=== PATIENT | male | born 1975 | race American Indian/Alaskan Native ===

== ENCOUNTER 2018-09-13 18:26 | Emergency (ER) | payer SELFPAY ==
--- NOTE | 2018-09-13 18:38 | Emergency Department Report ---
Chief Complaint: Abdominal Pain Stated Complaint: LOWER BACK/SIDE PAIN Time Seen by Provider: 09/13/18 18:33 - HPI History of Present Illness: This is a 43 y.o. male that presents to the ER with left flank pain for 30 mins- 1 hour. Reports pain as sharp constant pain. No PMH - Exam Vital Signs: Vital Signs 09/13/18 18:30 Temperature 97.4 F L Pulse Rate 80 Respiratory 22 Rate Blood Pressure 151/89 [Right] O2 Sat by Pulse 99 Oximetry MSE screening note: Focused history and physical exam performed. Due to findings the following was ordered: Labs and CT of abdomen and pelvis ED Disposition for MSE Condition: Stable
[2018-09-13 18:42] VITALS: BP 151/98
[2018-09-13 19:13] LABS: Basophils # (Auto) 0.1 K/mm3 (0.0-0.1); Basophils % (Auto) 1.1 % (0.0-1.8); Eosinophils # (Auto) 0.5 K/mm3 (0.0-0.4); Eosinophils % (Auto) 5.9 % (0.0-4.3); Hematocrit 39.8 % (35.5-45.6); Hemoglobin 13.4 gm/dl (11.8-15.2); Lymphocytes # (Auto) 2.5 K/mm3 (1.2-5.4); Lymphocytes % (Auto) 30.6 % (13.4-35.0); Mean Corpuscular HGB Conc 34 % (32-34); Mean Corpuscular Volume 90 fl (84-94); Monocytes # (Auto) 0.7 K/mm3 (0.0-0.8); Monocytes % (Auto) 8.8 % (0.0-7.3); Platelet Count 433 K/mm3 (140-440); Red Blood Count 4.43 M/mm3 (3.65-5.03); Red Cell Distribution Width 14.6 % (13.2-15.2)
[2018-09-13 19:14] LABS: Alanine Aminotransferase 19 units/L (7-56); Albumin 4.2 g/dL (3.9-5); BUN/Creatinine Ratio 10; Blood Urea Nitrogen 15 mg/dL (9-20); Calcium 9.7 mg/dL (8.4-10.2); Hemolysis Index 5
[2018-09-13 19:40] LABS: Bilirubin,Urine NEG (Negative); Blood,Urine NEG (Negative); Color,Urine Yellow (Yellow); Mucus,Urine 1+ /HPF; Protein,Urine <15 mg/dL mg/dL (Negative)
== END 2018-09-13 19:42 | disposition left against medical advice (07) ==
LOC: ED 18:26
DX: M54.5 Low back pain (principal); Z53.21 Procedure and treatment not carried out due to patient leaving prior to being seen by health care provider
CPT/HCPCS: 36415; 80053; 81001; 83690; 85025

== ENCOUNTER 2020-07-31 23:09 | Emergency (ER) | payer BC ==
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
[2020-08-01 02:26] VITALS: BP 165/90
== END 2020-08-01 02:45 | disposition home or self-care (01) ==
LOC: ED 23:09
DX: S62.202A Unspecified fracture of first metacarpal bone, left hand, initial encounter for closed fracture (principal); Z79.1 Long term (current) use of non-steroidal anti-inflammatories (NSAID); Z79.899 Other long term (current) drug therapy; Z91.012 Allergy to eggs; X58.XXXA Exposure to other specified factors, initial encounter; Y93.89 Activity, other specified; Y92.89 Other specified places as the place of occurrence of the external cause; Y99.8 Other external cause status